=== PATIENT | male | born 1970 | race African-American/Black ===

== ENCOUNTER 2019-12-18 08:21 | Emergency (ER) | payer BC, SELFPAY ==
[2019-12-18 08:30] VITALS: BP 154/81; PULSE 84; RESP 20; TEMP 36.6; O2SAT 99
--- NOTE | 2019-12-18 08:46 | ED.EAR ---
HPI - Ear Problem General Chief complaint: Ear Stated complaint: rt ear pain Source: patient and RN notes reviewed Limitations: no limitations History of Present Illness HPI Narrative: The patient, a diabetic on several meds, presents with right ear discomfort. Patient states he has 1/2-week history of right ear discomfort, which was unimproved or even slightly aggravated,with Q-tips, OTC peroxide preparations. Symptoms are mild, worse with palpation; no fever, sore throat, discharge, tinnitus, vertigo, loss of taste/smell, cough, URI?sinusitis, CP . Patient declines irrigation procedure here, preferring meds; he requests refill of LBP meds Related Data Home Medications Medication Instructions Recorded Confirmed amlodipine 12/18/19 bumetanide 12/18/19 carvedilol 12/18/19 insulin aspart U-100 12/18/19 losartan 12/18/19 nifedipine PO 12/18/19 pantoprazole PO 12/18/19 simvastatin mg 12/18/19 spironolactone 12/18/19 Allergies Allergy/AdvReac Type Severity Reaction Status Date / Time lisinopril Allergy Unknown Verified 01/05/18 10:51 metformin Allergy Unknown Verified 01/05/18 10:51 Review of Systems Review of Systems: Narrative: General/Constitutional: No weight loss,fever Eyes: N0: Redness,discharge Ears/Nose/Throat: No: Epistaxis,ear discharge Respiratory: Denies: Hemoptysis Gastrointestinal: No Vomiting, Bleeding-rectal Skin: No Lumps, eruption Neurologic: No Focal Weakness,Sz Hematologic: Denies: Petechiae/Purpura Psychiatric: No: Suicida ideationl All Other Systems: Reviewed and Negative PMFSH Family History Family History (Updated 01/05/18 @ 10:15 by DOCTOR UNKNOWN) Father Diabetes mellitus Hypertension Grandparent Diabetes mellitus Hypertension Social History Social History Smoking status: Never smoker Alcohol intake: current Comments At time of signature, agree with nursing past medical, surgical, social and family history. There is no relevant family history pertinent to the presenting complaint Exam Narrative: Exam Narrative: General Appearance: Well appearing, Well nourished, EYE: PERRLA , EOMI Ears: External ear normal, right TM with scant wax distally against TM, EAC with mild [mechanical] irritation, leftt TM and EAC normal Nose: Normal nose, Nares clear Mouth/Throat: Normal appearing, Normal lips Neck: Supple, No adenopathy Respiratory: Airway patent, No respiratory distress Skin: Warm, Dry Neurological: A&O x3, CN II-X intact Psychiatric: Normal mood, Normal affect Course Vital Signs Vital signs: Vital Signs Temperature 97.9 F 12/18/19 08:30 Pulse Rate 84 12/18/19 08:30 Respiratory Rate 20 12/18/19 08:30 Blood Pressure 154/81 H 12/18/19 08:30 Pulse Oximetry 99 12/18/19 08:30 Temperature 97.9 F 12/18/19 08:30 Pulse Rate 84 12/18/19 08:30 Respiratory Rate 20 12/18/19 08:30 Blood Pressure 154/81 H 12/18/19 08:30 Pulse Oximetry 99 12/18/19 08:30 Medical Decision Making Vital Signs Vital Signs: Vital Signs Temperature 97.9 F 12/18/19 08:30 Pulse Rate 84 12/18/19 08:30 Respiratory Rate 20 12/18/19 08:30 Blood Pressure 154/81 H 12/18/19 08:30 Pulse Oximetry 99 12/18/19 08:30 Temperature 97.9 F 12/18/19 08:30 Pulse Rate 84 12/18/19 08:30 Respiratory Rate 12/18/19 08:30 Blood Pressure 154/81 H 12/18/19 08:30 Pulse Oximetry 99 12/18/19 08:30 Discharge Plan Discharge Clinical Impression: Ceruminosis Qualifiers: Laterality: right Qualified Code(s): H61.21 - Impacted cerumen, right ear Patient Disposition: Home, Self-Care Condition: Stable Prescriptions: New cyclobenzaprine 10 mg tablet 10 mg PO BID PRN (Reason: muscle spasm) Qty: 20 RF: 1 [id number] 3.5-10,000-1 mg/mL-unit/mL-% solution 4 drop RIGHT EAR Q8H Qty: 10 RF: 1 No Action carvedilol 25 mg tablet RF: 0 bumetanide 2 mg tablet RF: 0
== END 2019-12-18 09:02 | disposition home or self-care (01) ==
PROVIDERS: Emergency Provider Emergency Medicine
DX: H61.21 Impacted cerumen, right ear (principal); E78.00 Pure hypercholesterolemia, unspecified; I10 Essential (primary) hypertension; E11.9 Type 2 diabetes mellitus without complications
CPT/HCPCS: 99203; G0463